=== PATIENT | male | born 1970 | race Caucasian/White ===

== ENCOUNTER 2022-01-05 08:32 | Emergency (ER) | payer OTHER ==
[~2022-01-05] VITALS: Ht 177.8 cm; Wt 104.3 kg
[2022-01-05] MEDS ORDERED: METO100ER PO ×2 (08:59→09:24)
[2022-01-05] MEDS ORDERED: AMLO5 PO (08:59)
[2022-01-05] MEDS ORDERED: Norvasc5 MG PO (09:24)
== END 2022-01-05 10:03 | disposition home or self-care (01) ==
LOC: ER 08:32
DX: Z76.0 Encounter for issue of repeat prescription (principal); I10 Essential (primary) hypertension; Z79.899 Other long term (current) drug therapy
CPT/HCPCS: 99281